=== PATIENT | male | born 1995 | race Hispanic/Latino ===

== ENCOUNTER 2017-05-26 21:37 | Emergency (ER) | payer SELFPAY | END 2017-05-26 21:55 | disposition home or self-care (01) | LOC: BURERS 21:37 | DX: S46.012A Strain of muscle(s) and tendon(s) of the rotator cuff of left shoulder, initial encounter (principal); F17.210 Nicotine dependence, cigarettes, uncomplicated; X50.0XXA Overexertion from strenuous movement or load, initial encounter; Y99.0 Civilian activity done for income or pay | CPT/HCPCS: 99283 ==

== ENCOUNTER 2019-11-23 14:22 | Emergency (ER) | payer OTHER, SELFPAY ==
[2019-11-24 14:21] LABS: SARS-CoV-2 MS2 Positive; SARS-CoV-2 N Gene Negative; SARS-CoV-2 S Gene Negative; SARS-CoV-2 by NAA Not Detected (NotDetected); SARS-CoV-2 orf1ab Negative
== END 2019-11-23 16:45 | disposition home or self-care (01) ==
LOC: BURERS 14:22
DX: B34.9 Viral infection, unspecified (principal); Z20.828 Contact with and (suspected) exposure to other viral communicable diseases
CPT/HCPCS: 87635; 87804; 99283; U0003

== ENCOUNTER 2020-09-06 19:21 | Emergency (ER) | payer SELFPAY ==
[2020-09-07 10:43] LABS: SARS-CoV-2 PCR by NAA Not Detected (NotDetected)
== END 2020-09-06 19:45 | disposition home or self-care (01) ==
LOC: BURERS 19:21
DX: R53.81 Other malaise (principal); Z20.822 Contact with and (suspected) exposure to COVID-19
CPT/HCPCS: 99283; U0003; U0005

== ENCOUNTER 2020-10-11 14:33 | Emergency (ER) | payer SELFPAY | END 2020-10-11 15:55 | disposition home or self-care (01) | LOC: BURERS 14:33 | DX: Z00.00 Encounter for general adult medical examination without abnormal findings (principal) | CPT/HCPCS: 71045; 93005 ==

== ENCOUNTER 2021-03-19 09:54 | Emergency (ER) | payer SELFPAY | END 2021-03-19 10:08 | disposition left against medical advice (07) | LOC: BURERS 09:54 | DX: Z53.21 Procedure and treatment not carried out due to patient leaving prior to being seen by health care provider (principal) ==

== ENCOUNTER 2021-06-23 07:21 | Emergency (ER) | payer SELFPAY ==
[2021-06-23] MEDS ORDERED: hydrOXYzine 25 MG TAB ONE (08:09)
[2021-06-23] MEDS ORDERED: Sulfameth/Trimethoprim DS 800-160mg TAB ONE (08:09)
[2021-06-23] MEDS ORDERED: Dexamethasone 4 MG TAB ONE (08:09)
== END 2021-06-23 08:17 | disposition home or self-care (01) ==
LOC: BURERS 07:21
DX: J01.90 Acute sinusitis, unspecified (principal); R60.0 Localized edema
CPT/HCPCS: 99283; J8540

== ENCOUNTER 2021-06-26 08:16 | Emergency (ER) | payer SELFPAY | END 2021-06-26 08:52 | disposition home or self-care (01) | LOC: BURERS 08:16 | DX: J06.9 Acute upper respiratory infection, unspecified (principal); K12.2 Cellulitis and abscess of mouth | CPT/HCPCS: 99283 ==

== ENCOUNTER 2021-10-22 10:41 | Emergency (ER) | payer SELFPAY | END 2021-10-22 11:36 | disposition home or self-care (01) | LOC: BURERS 10:41 | DX: H61.23 Impacted cerumen, bilateral (principal) | CPT/HCPCS: 69210 ==